=== PATIENT | female | born 1975 | race Caucasian/White ===

== ENCOUNTER 2018-10-03 20:40 | Emergency (ER) | payer OTHER ==
[~2018-10-03] VITALS: Ht 167.6 cm; Wt 81.6 kg
[~2018-10-03 20:40] MED LIST: ACCUNEB0.63 MG/3
[2018-10-04] MEDS ORDERED: ZITHROMAX500 MG PO ×2 (02:28)
[2018-10-04] MEDS ORDERED: SYMBICORT 16010.2 GM IH (02:28)
[2018-10-04] MEDS ORDERED: ZYNCOF 20-400120 ML PO (02:28)
[2018-10-04] MEDS ORDERED: ALBUTEROL2.5 MG/3 M IH (02:28)
== END 2018-10-04 02:33 | disposition home or self-care (01) ==
LOC: ER 20:40
DX: J98.8 Other specified respiratory disorders (principal)

== ENCOUNTER 2025-03-09 10:42 | Emergency (ER) | payer OTHER ==
[~2025-03-09] VITALS: Ht 167.6 cm; Wt 80.7 kg
[~2025-03-09 10:42] MED LIST changes: +ALBUTEROL2.5 MG/3 M IH; +SYMBICORT 16010.2 GM IH; +ZITHROMAX500 MG PO; +ZYNCOF 20-400120 ML PO
[2025-03-09] MEDS ORDERED: LEVOTHYROXINE100 MCG PO (11:49)
[2025-03-09] MEDS ORDERED: LEVALBUTEROL HCL 1.25 MG/3 ML SOLUTION IH SCH (12:15)
[2025-03-09] MEDS ORDERED: BENZONATATE 200 MG CAPSULE PO ONE (12:15)
[2025-03-09] MEDS ORDERED: ACETAMINOPHEN 500 MG GEL..CAP PO ONE ×2 (12:15→12:23)
[2025-03-09] MEDS ORDERED: METHYLPREDNISOLONE SOD SUCC 125 MG VIAL IV ONE (12:15)
[2025-03-09] MEDS ORDERED: IPRATROPIUM BROMIDE 0.5 MG/2.5 ML AMPUL.NEB IH SCH (12:15)
[2025-03-09] MEDS ORDERED: METHYLPREDNISOLONE SOD SUCC 125 MG VIAL ONE (12:23)
[2025-03-09 13:01] LABS: BASO % 0.6 % (0.1-1.2); EOS # 0.42 (0.04-0.54); EOS % 4.4 % (0.7-7.0); LYMPH # 1.62 (1.18-3.74); LYMPH % 16.8 % (19.3-53.1); MEAN PLATELET VOLUME 11.70 fl (9.4-12.4); MONO # 0.95 (0.24-0.82); MONO % 9.8 % (4.7-12.5); NEUT # 6.57 (1.56-6.13); NEUT % 68.1 % (34.0-71.1); RED CELL DISTRIBUTION WIDTH 13.1 % (11.6-14.4)
[2025-03-09 13:02] LABS: ERYTHROCYTE SEDIMENTATION RATE 46 mm/hr (0-20)
[2025-03-09] MEDS ORDERED: LEVALBUTEROL HCL 0.63 MG/3 ML SOLUTION IH ONE (13:11)
[2025-03-09] MEDS ORDERED: IPRATROPIUM BROMIDE 0.5 MG/2.5 ML AMPUL.NEB IH ONE (13:12)
[2025-03-09 14:12] LABS: COVID-19 AG NEGATIVE (NEGATIVE)
== END 2025-03-09 18:16 | disposition home or self-care (01) ==
LOC: ER 10:43
PROVIDERS: General Practice
DX: J45.901 Unspecified asthma with (acute) exacerbation (principal); Z88.6 Allergy status to analgesic agent; E03.8 Other specified hypothyroidism; Z20.822 Contact with and (suspected) exposure to COVID-19